=== PATIENT | female | born 1935 | race African-American/Black ===

== ENCOUNTER 2019-07-09 10:32 | Inpatient (IN) | payer OTHER, MEDICAID ==
[~2019-07-09] VITALS: Ht 162.6 cm; Wt 141.5 kg
[2019-07-09] MEDS ORDERED: IPRATROPIUM BROMIDE (0.02%) 0.5MG/2.5ML NEB HHN STA (10:43)
[2019-07-09] MEDS ORDERED: METHYLPREDNISOLONE SOD SUCC 125 MG/2 ML VIAL IV STA (10:43)
[2019-07-09] MEDS ORDERED: MAGNESIUM 2 G PREMIX 50 ML IV ONE (10:45)
[2019-07-09] MEDS ORDERED: FUROSEMIDE 40MG/4ML VIAL IV ONE (10:45)
[2019-07-09] MEDS ORDERED: NITROGLYCERIN OINT 1GM/INCH UDPKT TD ONE (10:45)
[2019-07-09] MEDS: ALBUTEROL (0.083%) 2.5MG/3ML NEB HHN SCH ×3 (11:07→11:53)
[2019-07-09 11:24] LABS: BASOPHILS % 0.9 % (0.0-2.0); EOSINOPHILS % 4.2 % (0.0-5.0); HEMATOCRIT. 47.6 % (36.0-48.0); LYMPHOCYTES % 24.6 % (20.0-50.0); MEAN CORPUSCULAR HEMOGLOBIN 27.3 pg (28.0-32.0); MEAN CORPUSCULAR VOLUME 86.7 fL (81.0-99.0); MEAN PLATELET VOLUME 8.7 fl (7.4-10.4); MONOCYTES % 7.9 % (2.0-8.0); NEUTROPHILS % 62.4 % (40.0-76.0); PLATELET 287 x1000/uL (130-400); RED BLOOD CELL COUNT 5.49 mill/uL (4.2-5.4); RED CELL DISTRIBUTION WIDTH 14.7 % (11.6-14.6)
[2019-07-09 11:31] LABS: CHLORIDE 106 mEq/L (98-107); PROTHROMBIN TIME 10.5 sec (9.6-11.0)
[2019-07-09 22:00] VITALS: BP_SYST 130; BP_SYST 159; BP_DIAS 109; BP_DIAS 81
[2019-07-09] MEDS ORDERED: IOHEXOL-350 100 ML BOTTLE ONE (22:38)
[2019-07-10] VITALS (12 sets, daily range): BP systolic 108–164; BP diastolic 43–81
[2019-07-10] MEDS ORDERED: LOSARTAN POTASSIUM 100 MG TABLET PO NR
[2019-07-10] MEDS ORDERED: IPRATROPIUM/ALBUTEROL 0.5-3(2.5)MG/3ML NEB HHN PRN
[2019-07-10] MEDS ORDERED: ONDANSETRON HCL 4MG/2ML INJ IV PRN
[2019-07-10] MEDS ORDERED: FUROSEMIDE 40MG/4ML VIAL IV SCH
[2019-07-10] MEDS ORDERED: ENOXAPARIN 40MG/0.4ML SYR SUBCUT SCH
[2019-07-10] MEDS ORDERED: ACETAMINOPHEN 325MG TABLET PO PRN ×2 (00:15)
[2019-07-10] MEDS: METHYLPREDNISOLONE SOD SUCC 40 MG/ML VIAL IV SCH ×3 (01:09→17:48)
[2019-07-10] MEDS: IPRATROPIUM/ALBUTEROL 0.5-3(2.5)MG/3ML NEB HHN SCH ×6 (04:24→20:58)
[2019-07-10] MEDS ORDERED: GUAIFENESIN/CODEINE 200-20MG/10ML UDC PO PRN (06:45)
[2019-07-10] MEDS: PANTOPRAZOLE 40MG DR TABLET PO SCH (07:06)
[2019-07-10] MEDS ORDERED: LOSARTAN POTASSIUM 100 MG TABLET PO SCH (09:00)
[2019-07-10] MEDS ORDERED: ENOXAPARIN 30MG/0.3ML SYR SUBCUT SCH (09:00)
[2019-07-10 09:36] LABS: BASOPHILS % 0.3 % (0.0-2.0); EOSINOPHILS % 0.1 % (0.0-5.0); HEMATOCRIT. 42.7 % (36.0-48.0); HEMOGLOBIN. 13.5 g/dL (12.0-16.0); MEAN CORPUSCULAR HEMOGLOBIN 27.4 pg (28.0-32.0); MEAN CORPUSCULAR VOLUME 86.5 fL (81.0-99.0); MEAN PLATELET VOLUME 8.2 fl (7.4-10.4); MONOCYTES % 10.1 % (2.0-8.0); NEUTROPHILS % 59.5 % (40.0-76.0); PLATELET 264 x1000/uL (130-400); RED BLOOD CELL COUNT 4.94 mill/uL (4.2-5.4); RED CELL DISTRIBUTION WIDTH 14.4 % (11.6-14.6)
[2019-07-10 09:46] LABS: CHLORIDE 104 mEq/L (98-107)
[2019-07-10] MEDS: FUROSEMIDE 40MG/4ML VIAL IVP SCH (09:53)
[2019-07-10 09:56] LABS: LDL CHOLESTEROL 97 mg/dL (5-100)
[2019-07-10 09:57] LABS: CREATINE KINASE 92 IU/L (26-192); HDL CHOLESTEROL 73 mg/dL (40-59); T4 FREE 1.21 ng/dL (0.76-1.46)
[2019-07-10 15:38] LABS: CLARITY URINE CLEAR (CLEAR); COLOR URINE YELLOW (YELLOW); KETONES URINE NEGATIVE (NEGATIVE); LEUKOCYTE ESTERASE URINE TRACE (NEGATIVE); NITRITE URINE NEGATIVE (NEGATIVE); OCCULT BLOOD URINE 3+ (NEGATIVE); PROTEIN URINE 1+ (NEGATIVE); SPECIFIC GRAVITY URINE 1.016 (1.005-1.030)
[2019-07-10] MEDS: LOSARTAN POTASSIUM 50 MG TABLET PO SCH (17:48)
[2019-07-10 20:08] LABS: CREATINE KINASE 122 IU/L (26-192)
[2019-07-10] MEDS: AMLODIPINE 2.5MG TABLET PO SCH (22:51)
[2019-07-10] MEDS: ENOXAPARIN 40MG/0.4ML SYR SUBCUT SCH (22:52)
[2019-07-11] VITALS (11 sets, daily range): BP systolic 130–178; BP diastolic 61–99
[2019-07-11] MEDS: IPRATROPIUM/ALBUTEROL 0.5-3(2.5)MG/3ML NEB HHN SCH ×6 (00:21→20:21)
[2019-07-11] MEDS: METHYLPREDNISOLONE SOD SUCC 40 MG/ML VIAL IV SCH ×3 (01:18→17:14)
[2019-07-11] MEDS: HYDROCODONE/ACETAMINOPHEN 5/325MG TABLET PO PRN ×2 (01:19→14:32)
[2019-07-11] MEDS: CLONIDINE 0.1MG TABLET PO PRN (06:17)
[2019-07-11] MEDS: PANTOPRAZOLE 40MG DR TABLET PO SCH (06:30)
[2019-07-11 07:22] LABS: BASOPHILS % 0.3 % (0.0-2.0); HEMATOCRIT. 42.4 % (36.0-48.0); HEMOGLOBIN. 13.2 g/dL (12.0-16.0); LYMPHOCYTES % 14.4 % (20.0-50.0); MEAN CORPUSCULAR HEMOGLOBIN 26.9 pg (28.0-32.0); MEAN CORPUSCULAR VOLUME 86.6 fL (81.0-99.0); MEAN PLATELET VOLUME 8.9 fl (7.4-10.4); MONOCYTES % 2.4 % (2.0-8.0); NEUTROPHILS % 82.9 % (40.0-76.0); PLATELET 256 x1000/uL (130-400); RED BLOOD CELL COUNT 4.89 mill/uL (4.2-5.4); RED CELL DISTRIBUTION WIDTH 14.5 % (11.6-14.6)
[2019-07-11 07:36] LABS: CHLORIDE 103 mEq/L (98-107)
[2019-07-11] MEDS: FUROSEMIDE 40MG/4ML VIAL IVP SCH (09:38)
[2019-07-11] MEDS: AMLODIPINE 2.5MG TABLET PO SCH ×2 (09:38→22:45)
[2019-07-11] MEDS: ENOXAPARIN 40MG/0.4ML SYR SUBCUT SCH ×2 (09:39→22:00)
[2019-07-11] MEDS: LOSARTAN POTASSIUM 50 MG TABLET PO SCH ×2 (09:39→17:14)
[2019-07-11] MEDS ORDERED: LIDOCAINE HCL/PF 1% 2ML VIAL ONE (10:51)
[2019-07-11 14:43] LABS: BG BASE EXCESS 8.2 mmol/L (-2.0-2.0); BG CARBOXYHEMOGLOBIN 0.9 % (0.5-1.5); BG DEOXYHEMOGLOBIN 12.5 % (0.0-5.0); BG HCO3 ACT 36.7 mmol/L (22.0-26.0); BG METHEMOGLOBIN 0.4 % (0.0-1.5); BG OXYGEN SATURATION 87.3 % (92.0-98.5); BG OXYHEMOGLOBIN 86.2 % (94.0-97.0); BG PH 7.344 (7.350-7.450); BG PO2 50.8 mmHg (75.0-100.0); BG SAMPLE SITE RIGHT RADIAL; BG TOTAL HEMOGLOBIN 14.7 g/dL (12.0-18.0); BG VENT MODE ROOM AIR
[2019-07-12] VITALS (11 sets, daily range): BP systolic 141–187; BP diastolic 61–105
[2019-07-12] MEDS: IPRATROPIUM/ALBUTEROL 0.5-3(2.5)MG/3ML NEB HHN SCH ×6 (00:27→21:29)
[2019-07-12] MEDS: METHYLPREDNISOLONE SOD SUCC 40 MG/ML VIAL IV SCH ×3 (02:07→16:19)
[2019-07-12] MEDS: FAMOTIDINE 20MG TABLET PO SCH (08:12)
[2019-07-12] MEDS: AMLODIPINE 2.5MG TABLET PO SCH ×2 (08:12→21:08)
[2019-07-12] MEDS: ENOXAPARIN 40MG/0.4ML SYR SUBCUT SCH ×2 (08:13→21:08)
[2019-07-12] MEDS: FUROSEMIDE 40MG/4ML VIAL IVP SCH (08:13)
[2019-07-12] MEDS: LOSARTAN POTASSIUM 50 MG TABLET PO SCH ×2 (08:13→16:19)
[2019-07-12 09:09] LABS: BASOPHILS % 0.7 % (0.0-2.0); EOSINOPHILS % 0.1 % (0.0-5.0); HEMATOCRIT. 44.4 % (36.0-48.0); HEMOGLOBIN. 14.1 g/dL (12.0-16.0); LYMPHOCYTES % 10.6 % (20.0-50.0); MEAN CORPUSCULAR HEMOGLOBIN 27.3 pg (28.0-32.0); MEAN PLATELET VOLUME 8.6 fl (7.4-10.4); MONOCYTES % 3.1 % (2.0-8.0); NEUTROPHILS % 85.5 % (40.0-76.0); PLATELET 293 x1000/uL (130-400); RED BLOOD CELL COUNT 5.17 mill/uL (4.2-5.4); RED CELL DISTRIBUTION WIDTH 14.3 % (11.6-14.6)
[2019-07-12 09:24] LABS: CHLORIDE 100 mEq/L (98-107)
[2019-07-12] MEDS ORDERED: P20 PO (14:14)
[2019-07-12] MEDS ORDERED: ALBU05 NEB (14:14)
[2019-07-12] MEDS ORDERED: AMLO2.5T2 PO (14:14)
[2019-07-12] MEDS ORDERED: LOSA50TA3 PO (14:14)
[2019-07-12] MEDS ORDERED: FURO-151 PO (14:14)
[2019-07-12] MEDS: CLONIDINE 0.1MG TABLET PO PRN (16:15)
[2019-07-12] MEDS: MAGNESIUM CITRATE 300ML SOLUTION PO NR ×2 (21:30→22:23)
[2019-07-13] VITALS: BP 158/69
[2019-07-13] MEDS: METHYLPREDNISOLONE SOD SUCC 40 MG/ML VIAL IV SCH ×2 (00:27→08:43)
[2019-07-13] MEDS: IPRATROPIUM/ALBUTEROL 0.5-3(2.5)MG/3ML NEB HHN SCH ×3 (01:18→09:22)
[2019-07-13 02:00] VITALS: BP 155/65
[2019-07-13 04:00] VITALS: BP 154/70
[2019-07-13 06:00] VITALS: BP 150/73
[2019-07-13 08:00] VITALS: BP 154/70
[2019-07-13] MEDS: FUROSEMIDE 40MG/4ML VIAL IVP SCH (08:43)
[2019-07-13] MEDS: LOSARTAN POTASSIUM 50 MG TABLET PO SCH (08:43)
[2019-07-13] MEDS: ENOXAPARIN 40MG/0.4ML SYR SUBCUT SCH (08:44)
[2019-07-13] MEDS: AMLODIPINE 2.5MG TABLET PO SCH (08:44)
[2019-07-13] MEDS: FAMOTIDINE 20MG TABLET PO SCH (08:44)
[2019-07-13] MEDS ORDERED: MAGNESIUM CITRATE 300ML SOLUTION PO NR (10:30)
== END 2019-07-13 12:17 | disposition home health service (06) | DRG 291 ==
LOC: EDBD 10:32 → ER 12:39 → EDBEDREQ 13:52 → EDBEDREQSVC 13:52 → ENRESERV 19:49 → 3WST 21:03
PROVIDERS: ADMIT Internal Medicine; ATTEND Internal Medicine
PROC: 5A09357 Assistance with Respiratory Ventilation, Less than 24 Consecutive Hours, Continuous Positive Airway Pressure (ICD-10-PCS; principal; 2019-07-09)
PROC: 5A09357 Assistance with Respiratory Ventilation, Less than 24 Consecutive Hours, Continuous Positive Airway Pressure (ICD-10-PCS; 2019-07-10)
PROC: 5A09357 Assistance with Respiratory Ventilation, Less than 24 Consecutive Hours, Continuous Positive Airway Pressure (ICD-10-PCS; 2019-07-11)
DX: I11.0 Hypertensive heart disease with heart failure (principal); J96.91 Respiratory failure, unspecified with hypoxia; J44.1 Chronic obstructive pulmonary disease with (acute) exacerbation; E66.2 Morbid (severe) obesity with alveolar hypoventilation; Z68.43 Body mass index [BMI] 50.0-59.9, adult; I50.33 Acute on chronic diastolic (congestive) heart failure; M79.7 Fibromyalgia; I35.8 Other nonrheumatic aortic valve disorders; D49.59 Neoplasm of unspecified behavior of other genitourinary organ; D18.00 Hemangioma unspecified site; E78.5 Hyperlipidemia, unspecified; I27.20 Pulmonary hypertension, unspecified; I49.3 Ventricular premature depolarization; M48.061 Spinal stenosis, lumbar region without neurogenic claudication; E11.9 Type 2 diabetes mellitus without complications; R62.7 Adult failure to thrive; Z82.3 Family history of stroke; Z82.49 Family history of ischemic heart disease and other diseases of the circulatory system; Z91.14 Patient's other noncompliance with medication regimen; Z87.891 Personal history of nicotine dependence
CPT/HCPCS: 36415; 36600; 71045; 71275; 80048; 80053; 80061; 81003; 82375; 82550; 82805; 83036; 83880; 84439; 84443; 84484; 85025; 85379; 93005; 93306; 93970; 94640; 94660; 96365; 96372; 96375; 97162; 97166; 99291; J1650; J1940; J2920; J2930; J3475; J3490; Q9967